=== PATIENT | female | born 2005 | race Hispanic/Latino ===

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

== ENCOUNTER 2025-03-06 15:45 | Emergency (ER) | payer SELFPAY ==
[~2025-03-06] VITALS: Ht 152.4 cm; Wt 53.1 kg
--- NOTE | 2025-03-06 16:05 | ERN ---
ED Note History of Present Illness Stated Complaint: WOUND CHECK Chief Complaint: Wound Check Time Seen by MD: 15:56 Time Seen by Midlevel: 16:00 Dictation: 19-year-old female coming in with complaints of pain to the laceration that happened yesterday night. Patient was seen here and had suture repaired here in the emergency room. Allergies: Coded Allergies: No Known Drug Allergies (Unverified Allergy, Unknown, 03/03/22) Home Meds Active Scripts Cephalexin Monohydrate (Keflex) 500 Mg Cap, 500 MG PO BID for 7 Days, #14 CAP Prov:MISHA LARSEN RECREATIONAL SPECIALIST 03/06/25 Past Medical History Past Medical History: No Pertinent History Surgical History: None Review of System Dictation Constitutional: Negative for fever,chills, and weight loss Eyes: Negative for injury, pain,redness, and discharge ENT: Negative for injury,pain or swelling Cardiovascular: Negative for chest pain, palpitations, and edema Respiratory: Negative for shortness of breath, cough, and wheezing, Abdomen/GI: Negative for abdominal pain, nausea, vomiting, diarrhea, and constipation Back: Negative for injury and pain : Negative for injury, bleeding and discharge MS/Extremity: Negative for injury and deformity, pain to the laceration Skin: Negative for rash, and discoloration Neuro: Negative for headache, weakness, numbness, tingling, and seizure Psych: Negative for suicide ideation, homicidal ideation, and hallucinations Review of Systems: was completed Initial Vital Sign VS Vital Signs Date Time Temp Pulse Resp B/P (MAP) Pulse Ox O2 Delivery O2 Flow Rate FiO2 03/06/25 15:47 97.9 83 16 100/73 98 Room Air 03/06/25 16:26 0 21 Physical Exam Dictation General: awake, alert, NAD Head/Face: Normocephalic, atraumatic Eyes: PERRL, EOMI, vision at baseline ENT: oral cavity clear, TMs clear, no signs of infection Neck: Trachea midline, supple, no nuchal rigidity Cardiovascular: RRR, normal S1/S2, No MRGs, no JVD Respiratory: CTAB, no respiratory distress, No rales or wheezes Abdomen: Soft, non-tender, non-distended, normal bowel sounds, no guarding or rebound. Skin: Warm, dry, normal turgor, no rash MS/Extremity: Pulses equal, no cyanosis, neurovascular intact, FROM, laceration was sent intact, no drainage, no dehiscence, infectious process. Neuro: COAx4, GCS 15, strength 5/5, CN 2-12 intact, normal cerebellar exam, nor mal gait, Psych: Normal behavior, mood, and affect normal ED Course ED Course Orders Procedure Category Date Status Time Ketorolac PHA 03/06/25 Complete Tromethamine 15mg/Ml 16:30 Hand 3+Vws Rt RAD 03/06/25 Resulted 16:05 Current Medications Medications (Trade) Dose Ordered Sig/Karly Route PRN Reason Start Time Stop Time Status Last Admin Dose Admin Ketorolac Tromethamine (toRADol) 15 mg ONCE ONCE IM 03/06/25 16:30 03/06/25 16:31 DC 03/06/25 16:37 Vital Signs Date Time Temp Pulse Resp B/P (MAP) Pulse Ox O2 Delivery O2 Flow Rate FiO2 03/06/25 17:58 79 17 110/67 98 Room Air* 0 21 03/06/25 16:26 97.7 100 20 114/81 97 Room Air* 0 21 03/06/25 15:47 97.9 83 16 100/73 98 Room Air Medical Decision Making MDM MDM: 19-year-old female coming in with complaints of pain to the laceration that happened yesterday night. Patient was seen here and had suture repaired here in the emergency room. X-ray shows no acute finding. Wound was cleaned again. We will discharge patient with the antibiotics. Discussed with the patient she n eeds to take Tylenol or ibuprofen [id number] for pain control. Educated on signs symptoms of when to return back to the emergency room. Patient verbalized understanding, answered all questions. Differential diagnosis: Wound dehiscence, suture tear, infection Rationale: Tests considered and ordered secondary to shared decision making include: Previous outside records reviewed: Old ER visits. Risk of complication and/or morbidity or mortality of patient management: None Medications-Per medication reconciliation Need for hospitalization: Patient does not meet criteria for hospitalization. Need for emergency major/minor surgery: No There are no social concerns with this patient. Prescription drug management Prescriptions will include symptomatic care Patient's prior external medical records from other ER visits were reviewed by me as indicated. Prior testing and results from previous visits were reviewed. Prior tests were taken into account with medical decision making and resource utilization, independent historian/historians were used to obtain complete medical history. I independently interpreted the test that were performed, results were reviewed by me and considered findings on radiology if ordered. Medical management and examination interpretation discussions were had by me with other qualified healthcare professionals as indicated for the patient's care. DX & DISP Disposition: Discharge Departure Impression: Primary Impression: Laceration of right hand Condition: Stable Scripts Cephalexin Monohydrate (Keflex) 500 Mg Cap 500 MG PO BID for 7 Days, #14 CAP Prov: MISHA LARSEN NP 03/06/25 Additional Instructions: Keep wound clean and dry. Return to the hospital in 7-10 days to remove your sutures. Take antibiotics as prescribed. If you notice any redness, drainage, foul odor please return back to the emergency room. Referrals: STEFANIE APONTE MD (PCP) Time of Disposition: 17:43 I have reviewed the case, and I agree with, Diagnosis and Plan MISHA LARSEN NP Mar 06, 2025 16:05 GENET MAXWELL DO Mar 06, 2025 18:25
[2025-03-06 16:26] VITALS: TEMP 97.7
--- NOTE | 2025-03-06 17:31 | HMCIMG ---
EXAM: XR Right Hand, 3 Views. CLINICAL HISTORY: Right hand pain COMPARISON: None provided. FINDINGS: BONES: No acute fracture or focal osseous lesion. JOINTS: No dislocation. The joint spaces are normal. SOFT TISSUES: The soft tissues are unremarkable. IMPRESSION: 1. No acute osseous abnormality. /[place]
[2025-03-06] MEDS ORDERED: CEPH500B PO (17:44)
[2025-03-06 17:58] VITALS: BP 110/67; PULSE 79; RESP 17; O2SAT 98
== END 2025-03-06 17:56 | disposition home or self-care (01) ==
LOC: EDH 15:45
DX: S61.411D Laceration without foreign body of right hand, subsequent encounter (principal); X58.XXXD Exposure to other specified factors, subsequent encounter
CPT/HCPCS: 99283; 73130; 96372; J1885